=== PATIENT | female | born 1980 | race Caucasian/White ===

== ENCOUNTER → 2018-04-20 | Outpatient (CLI) | payer BC ==
--- NOTE | 2018-04-20 12:37 | RAD ---
CT ABDOMEN PELVIS WO CONTRAST Indication: Micro hematuria, Left flank pain X ten days Exposure: One or more of the following individualized dose reduction techniques were utilized for this examination: 1. Automated exposure control 2. Adjustment of the mA and/or kV according to patient size 3. Use of iterative reconstruction technique. Comparison: None are available. Contrast: No intravenous contrast given. No oral contrast per request. Evaluation of solid viscera, bowel and vasculature is compromised by the noncontrast technique. Lower thorax: Noncalcified subpleural nodule, at the anterior right lung base, image 5, series 2, measures 5 mm. Liver: Unremarkable Spleen: Unremarkable Pancreas: Unremarkable Adrenals: No evidence of mass. Kidneys: Low-density lesion at the right kidney measures 18 mm diameter, and 3 Hounsfield units, compatible with a cyst. More subtle hypodense lesion at the upper pole of the right kidney too small to characterize. Urinary tracts: Small nonobstructive calculus left upper pole, measures 4 mm. No hydronephrosis. Gallbladder: No calcified stone Aorta: Mildly calcified, no aneurysm. Lymph nodes: No significant enlargement GI tract: No evidence of bowel obstruction. Colonic diverticulosis is identified. No evidence of acute colitis. Appendix is normal. Reproductive organs:No evidence of mass. Urinary bladder: Unremarkable. Peritoneum: No evidence of pneumoperitoneum. No free fluid. Abdominal wall: Unremarkable Spine: Mild degenerative spurring Bones: No acute displaced fracture is identified. IMPRESSION: 1. Small nonobstructive calculus in the upper pole left kidney. 2. Low-density lesions of the right kidney, most likely cysts. 3. Noncalcified right lung nodule, measures 5 mm. As per Fleischner Society guidelines, no follow-up is necessary if low risk, consider follow-up CT chest in 12 months if patient is high risk. Electronically signed by: Lasha Wise MD (04/20/2018 12:34 PM) [id number]
== END | disposition home or self-care (01) ==
LOC: CT 11:40
PROVIDERS: ATTEND Family Medicine
DX: N20.0 Calculus of kidney (principal); K57.30 Diverticulosis of large intestine without perforation or abscess without bleeding; R91.8 Other nonspecific abnormal finding of lung field
CPT/HCPCS: 74176

== ENCOUNTER → 2018-11-30 | Outpatient (CLI) | payer BC ==
--- NOTE | 2018-11-30 16:15 | RAD ---
Left knee, 3 views, 11/30/2018: HISTORY: Knee pain AP standing views of both knees as well as lateral and tangential patellar views on the left were obtained as requested. The knee joint spaces are well-maintained. No left knee fracture or subluxation is evident. No definite joint effusion is seen. IMPRESSION: No significant left knee abnormality is detected. Electronically signed by: Ian Hubbard MD (11/30/2018 4:12 PM) [facility]
--- NOTE | 2018-11-30 16:15 | RAD ---
Left knee, 3 views, 11/30/2018: HISTORY: Knee pain AP standing views of both knees as well as lateral and tangential patellar views on the left were obtained as requested. The knee joint spaces are well-maintained. No left knee fracture or subluxation is evident. No definite joint effusion is seen. IMPRESSION: No significant left knee abnormality is detected. Electronically signed by: Ian Hubbard MD (11/30/2018 4:12 PM) [facility]
== END | disposition home or self-care (01) ==
LOC: RAD 12:37
PROVIDERS: ATTEND Orthopaedic Surgery Sports Medicine
DX: M25.562 Pain in left knee (principal)
CPT/HCPCS: 73560; 73565

== ENCOUNTER → 2019-07-19 | Outpatient (CLI) | payer BC ==
--- NOTE | 2019-07-19 11:21 | RAD ---
EXAM: Left knee, 2 views. HISTORY: Pain. COMPARISON: 11/30/2018 FINDINGS: 2 views of the left knee are obtained. There is no fracture, dislocation or subluxation. There is mild medial compartment spurring. There is a trace joint effusion. IMPRESSION: 1. Mild medial compartment osteoarthritis of the left knee with trace effusion. 2. No acute osseous finding. Electronically signed by: Oksana Dejesus MD (07/19/2019 11:18 AM) [id number]
== END | disposition home or self-care (01) ==
LOC: PMG 10:49
PROVIDERS: ATTEND Registered Nurse
DX: S89.92XA Unspecified injury of left lower leg, initial encounter (principal); M25.462 Effusion, left knee; M17.12 Unilateral primary osteoarthritis, left knee; X58.XXXA Exposure to other specified factors, initial encounter; Y93.89 Activity, other specified; Y92.89 Other specified places as the place of occurrence of the external cause; Y99.8 Other external cause status
CPT/HCPCS: 73560

== ENCOUNTER → 2020-01-27 | Outpatient (CLI) | payer BC ==
--- NOTE | 2020-01-27 19:17 | RAD ---
Exam performed: X-ray Left elbow.shoulder . Indication: Patient fell today complaining of elbow and shoulder pain Date of Service: 01/27/2020. Comparison: None available Findings: AP and lateral view of the left elbow is obtained. Normal alignment is preserved. There is no acute fracture or dislocation. There is mild soft tissue swelling. No foreign body identified. AP view of the left shoulder in internal and external rotation and Y view is obtained. Normal alignment of the glenohumeral and acromioclavicular joint is preserved. There is no acute fracture or dislocation. No obvious soft tissue swelling or foreign body seen. The visualized left lung is clear. Impression: 1. Soft tissue swelling without underlying bony abnormality in the left elbow. 2. No acute abnormality seen in the left shoulder Electronically signed by: Lisseth Rai MD (01/27/2020 7:14 PM) [facility]
== END | disposition home or self-care (01) ==
LOC: RAD 18:29
PROVIDERS: ATTEND Physician Assistant Medical
DX: M79.89 Other specified soft tissue disorders (principal); M25.522 Pain in left elbow; M25.519 Pain in unspecified shoulder
CPT/HCPCS: 73030; 73070

== ENCOUNTER 2020-04-19 08:10 | Emergency (ER) | payer BC, MEDICAID ==
[~2020-04-19] VITALS: Ht 165.1 cm; Wt 77.2 kg
[2020-04-19 08:14] VITALS: BP 108/70
--- NOTE | 2020-04-19 08:31 | PHYS DOC ---
Past History Past Medical History: No Pertinent History Additional Past Medical Histor: kidney stones Past Surgical History: Hysterectomy Smoking: Cigarettes Alcohol Use: None General Adult EDM: Chief Complaint: SKIN PROBLEM HPI: HPI: Patient is a 39 year old F who presents with hives to her torso, back, and neck that come and go. She states that she gets them when she becomes stressed from going through her divorce. She states that she is itchy in the areas with hives and they will progressively get bigger and hot when she is upset. She rates the itchiness at 4/10 and states that it is not bothering her too much at the moment because she just woke up. She is taking ritadine, benadryl, and claritin with little relief. Pt also complains of L arm pain which she states is due to a chronic muscle tear. She recently lifted something heavy which made the pain worse. She states she has not been able to get an appointment with ortho due to insurance issues, and has been given a sling and muscle relaxers for this previously. Review of Systems: Review of Systems: Constitutional: Denies fever or chills Eyes: Denies redness or eye pain HENT: Denies nasal congestion or sore throat Respiratory: Denies cough or shortness of breath Cardiovascular: Denies chest pain or palpitations GI: Denies abdominal pain, nausea, or vomiting : Denies dysuria or hematuria Musculoskeletal: Denies back pain or joint pain Integument: Denies lesions; reports hives Neurologic: Denies headache or sensory changes Complete systems were reviewed and found to be within normal limits, except as documented in this note. Physical Exam: PE: Constitutional: Well developed, well nourished, no acute distress. HENT: Normocephalic, atraumatic Eyes: Conjunctiva normal, no discharge Neck: Normal range of motion, supple Lungs & Thorax: No respiratory distress, equal chest rise and fall Abdomen: Soft, no tenderness Skin: Warm, dry, hives noted to torso, back, and posterior neck. Back: No tenderness, no CVA tenderness Extremities: No tenderness, no edema Neurologic: Alert and oriented X 3, no focal deficits noted Psychologic: Affect normal, judgment normal Current Patient Data: Vital Signs: Vital Signs Date Time Temp Pulse Resp B/P (MAP) Pulse Ox O2 Delivery O2 Flow Rate FiO2 04/19/20 08:14 97.3 93 16 108/70 (83) 100 Room Air EKG: EKG: [] Radiology/Procedures: Radiology/Procedures: [] Course & Med Decision Making: Course & Med Decision Making Patient is a 39 yo F who presented to the ED for "stress induced" rash to her back, torso, and neck. She received IM dexamethasone which was tolerated well. Pt also complains of chronic tear in muscle of L arm that she recently exacerbated by lifting something heavy. Pt requested pain medication for this while she is trying to get an appointment with [facility]. DEENA checked and she has not been prescribed any narcotic pain medication since November. Pt received prescription for hydrocodone today. She was recommended to continue use of sling and muscle relaxers which she had been given previously. Pt stable upon discharge. Dragon Disclaimer: Dragon Disclaimer: This electronic medical record was generated, in whole or in part, using a voice recognition dictation system. Departure Departure: Impression: Primary Impression: Rash and nonspecific skin eruption Additional Impression: Muscle strain of left upper arm Qualified Codes: S46.912A - Strain of unspecified muscle, fascia and tendon at shoulder and upper arm level, left arm, initial encounter Disposition: HOME/RESIDENCE PRIOR TO ADM Condition: STABLE Referrals: MARCE ARCINIEGA MD (PCP) YESENIA ANGUIANO MD Patient Instructions: Muscle Strain, [id number], Rash, [id number], Stress Management Additional Instructions: May continue over the counter Benadryl and Pepcid for continued rash. Also prote ct area with a "barrier cream" such as Aquaphor. Decreased stress in your life. Scripts Hydrocodone Bit/Acetaminophen (NORCO 5-325 TABLET) 1 Each Tablet 0.5-1 TAB PO Q6HRS PRN for PAIN, #6 TAB Prov: KEVIN TURNER DO 04/19/20 KEVIN TURNER DO Apr 19, 2020 08:31
[2020-04-19] MEDS ORDERED: DEXAMETHASONE SOD PHOS 10 MG/ML VIAL. IM ONE (08:45)
[2020-04-19] MEDS ORDERED: HYDR-3165 PO (08:46)
== END 2020-04-19 09:03 | disposition home or self-care (01) ==
LOC: ER 08:10
DX: S46.912A Strain of unspecified muscle, fascia and tendon at shoulder and upper arm level, left arm, initial encounter (principal); R21 Rash and other nonspecific skin eruption; L50.9 Urticaria, unspecified; F17.210 Nicotine dependence, cigarettes, uncomplicated; Z87.442 Personal history of urinary calculi; X50.9XXA Other and unspecified overexertion or strenuous movements or postures, initial encounter; Y93.89 Activity, other specified; Y92.89 Other specified places as the place of occurrence of the external cause; Y99.8 Other external cause status
CPT/HCPCS: 96372; 99283; J1100